=== PATIENT | female | born 1965 | race Two or more races ===

== ENCOUNTER 2018-08-28 17:04 | Emergency (ER) | payer BC ==
[2018-08-28] MEDS ORDERED: Ondansetron 4 MG/2 ML SDV IVPUSH ONE (17:35)
[2018-08-28] MEDS ORDERED: Ketorolac 30 MG/ML SDV IVPUSH ONE (17:35)
[2018-08-28] MEDS ORDERED: Sodium Chloride 0.9% 1,000 ML IV ONE (17:35)
[2018-08-28] MEDS ORDERED: Meclizine 25 MG Tab PO ONE (17:36)
--- NOTE | 2018-08-28 17:50 | EDM.PDOC ---
ED HPI GENERAL MEDICAL PROBLEM - General Chief Complaint: Headache Stated Complaint: HEADACHE Time Seen by Provider: 08/28/18 17:16 Source of Information: Reports: Family History Limitations: Reports: Language Barrier - History of Present Illness INITIAL COMMENTS - FREE TEXT/NARRATIVE: HISTORY AND PHYSICAL: History of present illness: Patient is a 52-year-old female who presents to the ED today for concern of headache, ear pain, and loss of balance/dizziness over the past week. Patient is primarily speaking and presents with her who is interpreting for her. Continuity Tester was offered but patient declines. Patient was originally seen in the clinic and was given an antibiotic for her symptoms. Patient states she has taken the antibiotic and her symptoms have not improved. She states her headache radiates to both ears. Patient states she has never had these symptoms before and does not have a history of headaches. Patient states when she is walking at times she feels a little bit off balance due to the room spinning, but she has not fallen. Patient has a history of type 2 diabetes but denies any other health history. Patient denies fever, chills, chest pain, shortness of breath, or cough. Denies neck stiff ness, change in vision, syncope, or near syncope. Denies nausea, vomiting, abdominal pain, diarrhea, constipation, or dysuria. Has not noted any blood in urine or stool. Patient has been eating and drinking appropriately. Review of systems: As per history of present illness and below otherwise all systems reviewed and negative. Past medical history: As per history of present illness and as reviewed below otherwise noncontributory. Surgical history: As per history of present illness and as reviewed below otherwise noncontributory. Social history: See social history for further information Family history: As per history of present illness and as reviewed below otherwise noncontributory. Physical exam: General: Patient is alert, oriented, and in no acute distress. Patient sitting comfortably on exam table. HEENT: Atraumatic, normocephalic, pupils equal and reactive bilaterally, negative for conjunctival pallor or scleral icterus, mucous membranes moist, TMs normal bilaterally, throat clear, neck supple, nontender, trachea midline. No drooling or trismus noted. No meningeal signs. No hot potato voice noted. Lungs: Clear to auscultation, breath sounds equal bilaterally, chest nontender. Heart: S1S2, regular rate and rhythm without overt murmur Abdomen: Soft, nondistended, nontender. Negative for masses or hepatosplenomegaly. Negative for costovertebral tenderness. Pelvis: Stable nontender. Genitourinary: Deferred. Rectal: Deferred. Skin: Intact, warm, dry. No lesions or rashes noted. Extremities: Atraumatic, negative for cords or calf pain. Neurovascular unremarkable. Neuro: Awake, alert, oriented. Cranial nerves II through XII unremarkable. Cerebellum unremarkable. Motor and sensory unremarkable throughout. Exam nonfocal. Notes: Discussed the importance for follow-up with a primary care provider. Voices understanding and is agreeable to plan of care. Denies any further questions or concerns at this time. Diagnostics: CBC, CMP, UA, orthostatic vitals, EKG, head CT, Therapeutics: Toradol, meclizine, Zofran, normal saline Prescription: Bactrim, Pyridium Impression: Headache, unspecified Urinary tract infection Plan: 1. Take medications as prescribed. You can alternate ibuprofen and Tylenol as directed for pain and discomfort. 2. Follow-up with your primary care provider as discussed. 3. Return to the ED as needed and as discussed. Definitive disposition and diagnosis as appropriate pending reevaluation and review of above. Right Headache Pain Score (Numeric/FACES): 9 - Related Data Allergies Allergy/AdvReac Type Severity Reaction Status Date / Time No Known Allergies Allergy Verified 08/28/18 17:19 Home Meds: Home Meds Acarbose [Precose] 50 mg PO TID 08/28/18 [History] Gabapentin [Neurontin] 900 mg PO BEDTIME 08/28/18 [History] Linagliptin [Tradjenta] 5 mg PO DAILY 08/28/18 [History] Lisinopril 20 mg PO DAILY 08/28/18 [History] glyBURIDE/Metformin HCl [Glyburid-Metformin 1.25-250 mg] 5 - 500 mg PO DAILY 09/11 [History] traZODone HCl [Trazodone HCl] 100 mg PO BEDTIME 08/28/18 [History] Past Medical History Cardiovascular History: Reports: Hypertension 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 - Physical Exam Exam: See Below (See dictation) Course - Vital Signs Last Recorded V/S: Last Vital Signs Temp 35.9 C 08/28/18 17:15 Pulse 94 08/28/18 17:15 Resp BP 164/92 H 08/28/18 17:15 Pulse Ox 98 08/28/18 17:15 Orthostatic Blood Pressure [ 142/91 Standing] Orthostatic Blood Pressure [ 128/89 Sitting] Orthostatic Blood Pressure [ 143/87 Supine] - Orders/Labs/Meds Orders: Active Orders 24 hr Category Date Time Status EKG Documentation Completion [RC] STAT Care 08/28/18 17:35 Active Orthostatic Vital Signs [RC] ASDIRECTED Care 08/28/18 17:35 Active CULTURE URINE [RM] Stat Lab 08/28/18 19:25 Received Labs: Laboratory Tests 08/28/18 08/28/18 08/28/18 Range/Units 17:45 17:45 19:25 WBC 7.95 (4.0-11.0) K/uL RBC 5.13 (4.30-5.90) M/uL Hgb 14.8 (12.0-16.0) g/dL Hct 44.3 (36.0-46.0) % MCV 86.4 (80.0-98.0) fL MCH 28.8 (27.0-32.0) pg MCHC 33.4 (31.0-37.0) g/dL RDW Std Deviation 39.4 (28.0-62.0) fl RDW Coeff of Phi 12 (11.0-15.0) % Plt Count 260 (150-400) K/uL MPV 10.60 (7.40-12.00) fL Neut % (Auto) 62.6 (48.0-80.0) % Lymph % (Auto) 31.2 (16.0-40.0) % Bent % (Auto) 4.9 (0.0-15.0) % Eos % (Auto) 0.9 (0.0-7.0) % Baso % (Auto) 0.4 (0.0-1.5) % Neut # (Auto) 5.0 (1.4-5.7) K/uL Lymph # (Auto) 2.5 H (0.6-2.4) K/uL Bent # (Auto) 0.4 (0.0-0.8) K/uL Eos # (Auto) 0.1 (0.0-0.7) K/uL Baso # (Auto) 0.0 (0.0-0.1) K/uL Nucleated RBC % 0.0 /100WBC Nucleated RBCs # 0 K/uL Sodium 135 L (136-145) mmol/L Potassium 3.5 (3.5-5.1) mmol/L Chloride 99 (98-107) mmol/L Carbon Dioxide 24.7 (21.0-32.0) mmol/L BUN 20 H (7.0-18.0) mg/dL Creatinine 0.7 (0.6-1.0) mg/dL Est Cr Clr Drug Dosing TNP Estimated GFR (MDRD) > 60.0 ml/min Glucose 210 H (74-106) mg/dL Calcium 10.0 (8.5-10.1) mg/dL Total Bilirubin 0.4 (0.2-1.0) mg/dL AST 15 (15-37) IU/L ALT 31 (14-63) IU/L Alkaline Phosphatase 93 (46-116) U/L Total Protein 8.2 (6.4-8.2) g/dL Albumin 4.2 (3.4-5.0) g/dL Globulin 4.0 (2.6-4.0) g/dL Albumin/Globulin Ratio 1.0 (0.9-1.6) Urine Color YELLOW Urine Appearance HAZY Urine pH 6.0 (5.0-8.0) Ur Specific [place] 1.020 (1.001-1.035) Urine Protein NEGATIVE (NEGATIVE) mg/dL Urine Glucose (UA) 500 H (NEGATIVE) mg/dL Urine Ketones NEGATIVE (NEGATIVE) mg/dL Urine Occult Blood NEGATIVE (NEGATIVE) Urine Nitrite POSITIVE H (NEGATIVE) Urine Bilirubin NEGATIVE (NEGATIVE) Urine Urobilinogen 0.2 (<2.0) EU/dL Ur Leukocyte Esterase TRACE H (NEGATIVE) Urine RBC 0-2 (0-2/HPF) Urine WBC 10-13 (0-5/HPF) Ur Epithelial Cells FEW (NONE-FEW) Urine Bacteria FEW (NEGATIVE) Meds: Medications Discontinued Medications Generic Name Dose Route Start Last Admin Trade Name Kenn PRN Reason Stop Dose Admin Sodium Chloride 1,000 mls @ 999 mls/hr 08/28/18 17:35 08/28/18 17:57 Normal Saline IV 08/28/18 18:35 999 mls/hr STAT ONE Administration Ketorolac Tromethamine 30 mg 08/28/18 17:35 08/28/18 17:57 Toradol IVPUSH 08/28/18 17:36 30 mg ONETIME ONE Administration Meclizine HCl 25 mg 08/28/18 17:36 08/28/18 17:58 Antivert PO 08/28/18 17:37 25 mg ONETIME ONE Administration Ondansetron HCl 4 mg 08/28/18 17:35 08/28/18 17:58 Zofran IVPUSH 08/28/18 17:36 4 mg ONETIME ONE Administration Departure - Departure Time of Disposition: 19:56 Disposition: Home, Self-Care 01 Clinical Impression: Headache Qualifiers: Headache type: unspecified Headache chronicity pattern: unspecified pattern Intractability: not intractable Qualified Code(s): R51 - Headache Urinary tract infection Qualifiers: Urinary tract infection type: acute cystitis Hematuria presence: with hematuria Qualified Code(s): N30.01 - Acute cystitis with hematuria - Discharge Information Referrals: PCP,None [Primary Care Provider] - Forms: ED Department Discharge Additional Instructions: The following information is given to patients seen in the emergency department who are being discharged to home. This information is to outline your options for follow-up care. We provide all patients seen in our emergency department with a follow-up referral. The need for follow-up, as well as the timing and circumstances, are variable depending upon the specifics of your emergency department visit. If you don't have a primary care physician on staff, we will provide you with a referral. We always advise you to contact your personal physician following an emergency department visit to inform them of the circumstance of the visit and for follow-up with them and/or the need for any referrals to a consulting specialist. The emergency department will also refer you to a specialist when appropriate. This referral assures that you have the opportunity for follow-up care with a specialist. All of these measure are taken in an effort to provide you with optimal care, which includes your follow-up. Under all circumstances we always encourage you to contact your private physician who remains a resource for coordinating your care. When calling for follow-up care, please make the office aware that this follow-up is from your recent emergency room visit. If for any reason you are refused follow-up, please contact the [facility] at and asked to speak to the emergency department charge nurse. [facility] [address] [place] [id number] [address] 1. Take medications as prescribed. You can alternate ibuprofen and Tylenol as directed for pain and discomfort. 2. Follow-up with your primary care provider as discussed. 3. Return to the ED as needed and as discussed. - My Orders Last 24 Hours: My Active Orders 08/28/18 17:35 EKG Documentation Completion [RC] STAT Orthostatic Vital Signs [RC] ASDIRECTED 08/28/18 19:25 CULTURE URINE [RM] Stat - Assessment/Plan Last 24 Hours: My Active Orders 08/28/18 17:35 EKG Documentation Completion [RC] STAT Orthostatic Vital Signs [RC] ASDIRECTED 08/28/18 19:25 CULTURE URINE [RM] Stat
[2018-08-28 18:22] LABS: CHLORIDE,CL 99 mmol/L (98-107); SODIUM,NA 135 mmol/L (136-145)
--- NOTE | 2018-08-28 19:21 | CT ---
HISTORY: Right-sided head pain. COMPARISON: None. TECHNIQUE: Noncontrast axial images were obtained from the skullbase to the vertex and reviewed in brain, blood and bone windows. FINDINGS: Rose-white matter differentiation is preserved. No evidence for acute intracranial hemorrhage or infarction. No midline shift or mass effect. Ventricles are nondilated and symmetric. The bony calvaria are intact. Visualized paranasal sinuses and mastoid air cells are clear. IMPRESSION: No acute intracranial pathology. Please note that all CT scans at this facility use dose modulation, iterative reconstruction, and/or weight-based dosing when appropriate to reduce radiation dose to as low as reasonably achievable. Dictated by Shameka Rios MD @ Aug 28 2018 7:17PM Signed by Dr. Shameka Rios @ Aug 28 2018 7:19PM
== END 2018-08-28 20:08 | disposition home or self-care (01) ==
LOC: MW.ED 17:04
DX: R51 Headache (principal); N30.01 Acute cystitis with hematuria; I10 Essential (primary) hypertension; E11.40 Type 2 diabetes mellitus with diabetic neuropathy, unspecified
CPT/HCPCS: 70450; 80053; 81001; 85025; 87086; 93005; 96361; 96374; 96375; 99284; A9270; J1885; J2405; J7040